=== PATIENT | male | born 2005 | race Caucasian/White ===

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

== ENCOUNTER → 2023-04-21 | Outpatient (CLI) | payer OTHER ==
--- NOTE | 2023-04-21 17:51 | XR ---
EXAMINATION TYPE: XR knee complete LT DATE OF EXAM: 04/21/2023 5:19 PM CLINICAL INDICATION:Male, 17 years old with history of S83.92XA SPRAIN OF UNSPECIFIED SITE OF LEFT KN EE,; [facility] COMPARISON: None. TECHNIQUE: XR knee complete LT; examined in Frontal, lateral and oblique projections. FINDINGS: No evidence of any acute osseous pathology, soft tissue swelling. There is a small joint effusion present. IMPRESSION: 1. No acute osseous pathology. 2. Small joint effusion correlate with MRI for underlying soft tissue injury.
== END | disposition home or self-care (01) ==
LOC: RADXRMAIN 17:01
PROVIDERS: ATTEND Emergency Medicine
DX: M25.462 Effusion, left knee (principal); S83.92XA Sprain of unspecified site of left knee, initial encounter; X58.XXXA Exposure to other specified factors, initial encounter